=== PATIENT | female | born 1995 ===

== ENCOUNTER 2020-04-26 07:00 | Inpatient (IN) | payer OTHER ==
[2020-04-26 08:20] VITALS: BMI 36.8
--- NOTE | 2020-04-26 09:43 | PD.OB.PROG ---
Past Medical History - Primary Care Physician PCP:: Alonso Paiz Documenting Provider Type: Laborist - Admission Chief Complaint: none History of Present Illness: pt presents for post date iol. as per d/w pmd will place cervidil. History Source: Patient Limitations to Obtaining History: No Limitations - Nursing Documentation Maternal Triage Index: Maternal Triage Index ( Priority 5, Requesting MFTI) Hemorrhage Risk Assessment: Risk Level Low Risk High Level Risk Factors for None Hemorrhage Medium Level Risk Factors for None of the above Hemorrhage Low Level Risk Factors for No previous uterine incis,Brand Pregnaancy,No Hemorrhage known bleeding,No history of PPH Nursing Documentation Reviewed: Yes - Past Medical History ...: 1 ...Para: 0 ...LMP: 07/16/19 ... Weeks Gestation by Dates: 40.4 ...EDC by Dates: 04/21/20 ...EDC by Sono: 04/21/20 - Smoking History Smoking history: Never smoked - Alcohol/Substance Use Hx Alcohol Use: No Physical Exam - Obstetrical Vital Signs: Vital Signs Temperature 98.2 F 04/26/20 08:05 Pulse Rate 66 04/26/20 09:00 Respiratory Rate 20 04/26/20 09:00 Blood Pressure 118/68 04/26/20 09:00 O2 Sat by Pulse Oximetry (%) Constitutional: Yes: Well Nourished, No Distress, Calm - Abdominal Exam/OB Number of Fetuses: Single Contractions: No Monitor Mode: External Heart Rate (range): 140 Category: I Accelerations: Uniform Decelerations: None - Vaginal Exam/OB Vaginal Exam Deferred: No Vaginal Bleeding: No Dilatation (cm): ft Effacement (%): 0 Assessment/Plan iup at 40+ wks for iol cervical ripening cervidl placed. cont monitoring Dr. Paiz will come to attend this afternoon
[2020-04-26] MEDS ORDERED: DINOPROSTONE 10 MG VAGINAL SUPPOSITORY VG ONE (09:45)
[2020-04-26 09:50] LABS: BASO % 0.5 % (0-2.0); EOS % 0.8 % (0-4.5); HEMATOCRIT 38.7 % (32.4-45.2); HEMOGLOBIN 13.4 GM/dL (10.7-15.3); LYMPH % 19.5 % (8-40); MCHC 34.5 g/dl (32.0-36.0); MEAN CELL VOLUME 89.9 fl (80-96); MONO % 7.4 % (3.8-10.2); NEUT % 71.8 % (42.8-82.8); PLATELET COUNT 162 K/MM3 (134-434); RBC 4.31 M/mm3 (3.60-5.2); RDW 13.4 % (11.6-15.6); WHITE BLOOD COUNT 9.6 K/mm3 (4.0-10.0)
[2020-04-26 09:56] LABS: INR 0.87 (0.83-1.09); PROTHROMBIN TIME (PATIENT) 10.2 SEC (9.7-13.0)
[2020-04-26 09:59] LABS: ACTIVATED PTT 25.1 SECONDS (25.2-36.5)
[2020-04-26 10:13] LABS: BLOOD UREA NITROGEN 9.4 mg/dL (7-18); CALCIUM 8.7 mg/dL (8.5-10.1); CREATININE 0.7 mg/dL (0.55-1.3); POTASSIUM 4.1 mmol/L (3.5-5.1)
[2020-04-26] MEDS: ELECTROLYTE-148 SOLN 1,000 ML IV SCH ×2 (14:20→20:00)
[2020-04-26] MEDS ORDERED: OXYTOCIN 30 UNITS in 0.9% NS 30 UNIT/500 ML INFUS.BAG IVPB ONE (15:27)
[2020-04-26] MEDS ORDERED: OXYTOCIN 30 UNITS in 0.9% NS 30 UNIT/500 ML INFUS.BAG IVPB SCH (15:45)
[2020-04-26] MEDS ORDERED: FENTANYL/BUPIVACAINE/NS/PF - PCEA - 50 ML DISP.SYRIN EP ONE (19:03)
[2020-04-26] MEDS ORDERED: PCA PUMP NR ONE (19:03)
[2020-04-26] MEDS ORDERED: BUPIVACAINE HCL/PF 0.25% (2.5MG/ML) 10 ML VIAL ONE (19:04)
--- NOTE | 2020-04-26 19:04 | PN ---
Progress Note (short form) - Note Progress Note: AROM - clear fluid @ 5:05 pm Pt c/o painful UC VSS, afebrile VE - 5 cm, 80%, -1 vtx,leaking clear fluid EFM 140 bpm, reactive, cat 1, no decel TOCO irreg UC q 2-4 min A/P continue pit augmentation Pt is requesting epidural anesthesia
[2020-04-26] MEDS ORDERED: NALOXONE HCL 0.4 MG/ML VIAL IVPUSH PRN (20:12)
[2020-04-26] MEDS ORDERED: FENTANYL/BUPIVACAINE/NS/PF - PCEA - 50 ML DISP.SYRIN EP SCH (20:15)
[2020-04-26] MEDS ORDERED: OXYTOCIN 20 UNITS in 0.9% NS 20 UNIT/1,000 ML INFUS.BAG IV ONE (20:20)
[2020-04-26] MEDS ORDERED: LIDOCAINE HCL 1% PRESERVATIVE FREE - 30ML VIAL ONE (20:20)
--- NOTE | 2020-04-26 21:03 | PN ---
Progress Note (short form) - Note Progress Note: Pt c/o pelvic pressure S/P epidural VSS, afebrile VE - 9 cm, 100%, +1 vtx, EFM 140 bpm, reactive, cat 1, no decel TOCO reg UC q 2-3 min A/P close observation
[2020-04-26] MEDS ORDERED: BENZOCAINE 28 GM HEMORRHOIDAL OINTMENT TP PRN (22:08)
[2020-04-26] MEDS ORDERED: METHYLERGONOVINE MALEATE 0.2 MG/1 ML AMP IM PRN (22:08)
--- NOTE | 2020-04-26 22:08 | PN ---
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
[2020-04-26] MEDS ORDERED: BENZOCAINE 20% 57 GM BOTTLE TP SCH (22:15)
[2020-04-26] MEDS ORDERED: OXYTOCIN 20 UNITS in 0.9% NS 20 UNIT/1,000 ML INFUS.BAG IV SCH (22:15)
[2020-04-26] MEDS ORDERED: WITCH HAZEL 50% (TUCKS) 40 PAD/JAR PAD TP SCH (22:15)
[2020-04-26 22:22] LABS: CORD BASE EXCESS -5.5 mmol/L (0-2); CORD HCO3 20.7 mmHg (20-29); CORD PCO2 42.5 mmHg (30-78); CORD pH 7.305 (7.14-7.44)
[2020-04-26 22:31] LABS: ARTERIAL BLOOD GAS BASE EXCESS -5.4 mmol/L (-2-2)
[2020-04-26 22:40] LABS: ARTERIAL BLOOD GAS PO2 < 15.0 mmHg (80-100)
[2020-04-27] MEDS: ACETAMINOPHEN 325 MG TABLET (FP) PO PRN ×2 (01:24→14:30)
[2020-04-27] MEDS: IBUPROFEN 600 MG TABLET (FP) PO PRN ×2 (01:25→14:31)
--- NOTE | 2020-04-27 06:47 | PN ---
Post Progress Note Type of Delivery: Vital Signs: Vital Signs Temperature 97.8 F 04/27/20 06:00 Pulse Rate 76 04/27/20 06:00 Respiratory Rate 18 04/27/20 06:00 Blood Pressure 126/72 04/27/20 06:00 O2 Sat by Pulse Oximetry (%) 100 04/26/20 23:00 Breast Exam: Yes: Soft Uterus: Yes: Fundus Firm, Fundus below umbilicus Abdomen/GI: Yes: Abdomen soft Lochia: Yes: Rubra Lochia, amount: Small Extremities: Yes: Calves non-tender Perineum: Yes: Episiotomy Activity: Ambulating (Encourage breast feeding) - Labs Labs: CBC WBC 9.6 K/mm3 (4.0-10.0) 04/26/20 09:00 RBC 4.31 M/mm3 (3.60-5.2) 04/26/20 09:00 Hgb 13.4 GM/dL (10.7-15.3) 04/26/20 09:00 Hct 38.7 % (32.4-45.2) 04/26/20 09:00 MCV 89.9 fl (80-96) 04/26/20 09:00 MCH 31.0 pg (25.7-33.7) 04/26/20 09:00 MCHC 34.5 g/dl (32.0-36.0) 04/26/20 09:00 RDW 13.4 % (11.6-15.6) 04/26/20 09:00 Plt Count 162 K/MM3 (134-434) 04/26/20 09:00 MPV 10.0 fl (7.5-11.1) 04/26/20 09:00 Absolute Neuts (auto) 6.9 K/mm3 (1.5-8.0) 04/26/20 09:00 Neutrophils % 71.8 % (42.8-82.8) 04/26/20 09:00 Lymphocytes % 19.5 % (8-40) 04/26/20 09:00 Monocytes % 7.4 % (3.8-10.2) 04/26/20 09:00 Eosinophils % 0.8 % (0-4.5) 04/26/20 09:00 Basophils % 0.5 % (0-2.0) 04/26/20 09:00 Nucleated RBC % 0 % (0-0) 04/26/20 09:00 Problem List - Problems (1) (normal spontaneous vaginal delivery) Code(s): O80 - ENCOUNTER FOR FULL-TERM UNCOMPLICATED DELIVERY Assessment/Plan Ambulate Regular diet Breast feeding
[2020-04-27 08:57] LABS: BASO % 0.2 % (0-2.0); EOS % 0.2 % (0-4.5); HEMATOCRIT 35.7 % (32.4-45.2); HEMOGLOBIN 11.8 GM/dL (10.7-15.3); LYMPH % 11.4 % (8-40); MCH 29.7 pg (25.7-33.7); MCHC 33.1 g/dl (32.0-36.0); MEAN CELL VOLUME 89.7 fl (80-96); MEAN PLT VOLUME 9.9 fl (7.5-11.1); MONO % 5.9 % (3.8-10.2); NEUT % 82.3 % (42.8-82.8); PLATELET COUNT 159 K/MM3 (134-434); RBC 3.98 M/mm3 (3.60-5.2); RDW 13.5 % (11.6-15.6); WHITE BLOOD COUNT 13.6 K/mm3 (4.0-10.0)
[2020-04-27] MEDS: DOCUSATE SODIUM 100 MG CAPSULE (FP) PO SCH ×2 (10:12→22:17)
--- NOTE | 2020-04-28 10:53 | PN ---
Progress Note (short form) - Note Progress Note: s/p pt has no complaints afebrile vitals stable mod lochia abdomen soft + BS no calf tenderness pt ambulating well hct stable plan d/c home tomorrow.
[2020-04-28 11:31] VITALS: BP 119/78; PULSE 90; TEMP 97.3
[2020-04-28] MEDS: DOCUSATE SODIUM 100 MG CAPSULE (FP) PO SCH (11:42)
== END 2020-04-28 14:10 | disposition home or self-care (01) | DRG 560 ==
LOC: JLDR 07:00 → J3W 23:26
PROVIDERS: ADMIT Obstetrics & Gynecology; ATTEND Obstetrics & Gynecology
PROC: 10907ZC Drainage of Amniotic Fluid, Therapeutic from Products of Conception, Via Natural or Artificial Opening (ICD-10-PCS; principal; 2020-04-26)
PROC: 0W8NXZZ Division of Female Perineum, External Approach (ICD-10-PCS; 2020-04-26)
PROC: 3E0P7VZ Introduction of Hormone into Female Reproductive, Via Natural or Artificial Opening (ICD-10-PCS; 2020-04-26)
DX: O48.0 Post-term pregnancy (principal); O69.81X0 Labor and delivery complicated by cord around neck, without compression, not applicable or unspecified; Z3A.40 40 weeks gestation of pregnancy; Z37.0 Single live birth
CPT/HCPCS: 36415; 36600; 59409; 80048; 82803; 85025; 85461; 85610; 85730; 86850; 86870; 86900; 86901; 86902; 86999; U0003